=== PATIENT | female | born 1980 | race Caucasian/White ===

== ENCOUNTER 2016-08-09 10:00 | Emergency (ER) | payer OTHER | END 2016-08-09 11:20 | disposition home or self-care (01) | LOC: FER 10:00 | DX: R51 Headache (principal); R09.89 Other specified symptoms and signs involving the circulatory and respiratory systems; F17.200 Nicotine dependence, unspecified, uncomplicated; Z82.49 Family history of ischemic heart disease and other diseases of the circulatory system; Z82.3 Family history of stroke | CPT/HCPCS: 99283 ==

== ENCOUNTER 2020-04-22 08:29 | Emergency (ER) | payer OTHER ==
[~2020-04-22 08:29] MED LIST: BROMFED DM COU473 ML PO; IBUPROFEN800 MG PO; MEDROL 4MG DOSEP4 MG PO; PREDNISONE 20MG20 MG PO; TESSALON PERLE100 M1 PO; VIBRAMYCIN100 MG PO; ZPAK PO
[2020-04-22] MEDS ORDERED: DICLOFENAC SODI75 MG PO (10:43)
== END 2020-04-22 10:57 | disposition home or self-care (01) ==
LOC: FER 08:29
DX: S50.11XA Contusion of right forearm, initial encounter (principal); I10 Essential (primary) hypertension; F17.210 Nicotine dependence, cigarettes, uncomplicated; W00.0XXA Fall on same level due to ice and snow, initial encounter; Y92.009 Unspecified place in unspecified non-institutional (private) residence as the place of occurrence of the external cause
CPT/HCPCS: 73090

== ENCOUNTER 2021-05-03 08:32 | Emergency (ER) | payer OTHER ==
[~2021-05-03] VITALS: Ht 175.3 cm; Wt 81.6 kg
[~2021-05-03 08:32] MED LIST changes: +DICLOFENAC SODI75 MG PO
[2021-05-03 10:26] LABS: BASOPHIL 0.7 % (0-2); HCT 38.8 % (37.0-47.0); LYMPHOCYTE 36.4 % (15-48); MCH 31.2 pg (25.0-31.0); MCHC 33.5 g/dL (32.0-36.0); MONOCYTE 7.9 % (0-12); MPV 9.9 fL (6.0-9.5); NEUTROPHIL 49.7 % (41-80); NRBC 0; PLT 277 K/uL (150-400); RBC 4.17 M/uL (4.20-5.40); RDW 12.3 % (11.5-14.0); WBC 5.9 K/uL (4.0-10.5)
[2021-05-03 10:48] LABS: INR 1.04 (0.9-1.2); PTT 30.7 SECONDS (24.4-34.7)
[2021-05-03 10:49] LABS: D-DIMER < 0.27 ug/mLFEU (0.00-0.41)
[2021-05-03 10:55] LABS: ALKALINE PHOSHATASE 53 U/L (46-116); ALT 26 U/L (14-59); AST 15 U/L (15-37); BILIRUBIN - TOTAL 0.4 mg/dL (0.2-1.0); BUN 10 mg/dL (7-18); BUN/CREAT RATIO (CALC) 10.4 RATIO; CHLORIDE 103 mmol/L (98-107); CO2 (BICARBONATE) 31 mmol/L (21-32); CPK 136 U/L (26-192); CREATININE 0.96 mg/dL (0.51-0.95); GLOBULIN (CALCULATION) 2.7 g/dL; GLUCOSE 110 mg/dL (74-106); LDH 176 U/L (81-234); POTASSIUM 3.6 mmol/L (3.5-5.1); TOTAL PROTEIN 6.7 g/dL (6.4-8.2)
[2021-05-03 10:56] LABS: C-REACTIVE PROTEIN < 0.20 mg/dL (<=0.90)
[2021-05-03] MEDS ORDERED: KEFLEX250 MG PO (11:43)
[2021-05-03] MEDS ORDERED: ALDACTONE25 MG PO (11:43)
[2021-05-03] MEDS ORDERED: NORCO 5-325 TA1 EACH PO ×3 (11:43→13:51)
[2021-05-03] MEDS ORDERED: BACTROBAN NASAL1 GM TOP (11:49)
== END 2021-05-03 12:00 | disposition home or self-care (01) ==
LOC: FER 08:32 → FOFB 09:20 → FER 12:00
PROVIDERS: Emergency Medicine
DX: L03.116 Cellulitis of left lower limb (principal); L03.115 Cellulitis of right lower limb; I10 Essential (primary) hypertension; Z79.899 Other long term (current) drug therapy
CPT/HCPCS: 36415; 71045; 80053; 82550; 82728; 83615; 83880; 84145; 84439; 84443; 84484; 85025; 85379; 85610; 85730; 86140; 87040; 93005; J1170; J2405

== ENCOUNTER 2021-07-18 20:08 | Emergency (ER) | payer OTHER ==
[~2021-07-18 20:08] MED LIST changes: +ALDACTONE25 MG PO; +BACTROBAN NASAL1 GM TOP; +KEFLEX250 MG PO; +NORCO 5-325 TA1 EACH PO
[2021-07-18 23:02] LABS: BASOPHIL 0.4 % (0-2); EOSINOPHIL 1.2 % (0-5); HCT 40.4 % (37.0-47.0); HGB 13.6 g/dl (12.5-16.0); LYMPHOCYTE 13.4 % (15-48); MCH 30.9 pg (25.0-31.0); MCHC 33.7 g/dL (32.0-36.0); MCV 91.8 fL (78.0-100.0); MONOCYTE 6.9 % (0-12); MPV 9.8 fL (6.0-9.5); NEUTROPHIL 77.8 % (41-80); NRBC 0; PLT 237 K/uL (150-400); RDW 12.2 % (11.5-14.0); WBC 10.9 K/uL (4.0-10.5)
[2021-07-18 23:03] LABS: BILIRUBIN NEGATIVE (NEGATIVE); BLOOD NEGATIVE Ery/uL (NEGATIVE); CLARITY CLEAR (CLEAR); COLOR YELLOW (YELLOW); GLUCOSE (U) NORMAL (NORMAL); LEUKOCYTES NEGATIVE Leu/uL (NEGATIVE); NITRITE NEGATIVE (NEGATIVE); PROTEIN TRACE (LOW) mg/dL (NEGATIVE)
[2021-07-18 23:13] LABS: ALBUMIN 4.2 g/dL (3.4-5.0); BILIRUBIN - TOTAL 1.3 mg/dL (0.2-1.0); BUN/CREAT RATIO (CALC) 14.4 RATIO; CREATININE 0.97 mg/dL (0.51-0.95); GLOBULIN (CALCULATION) 3.1 g/dL; POTASSIUM 3.4 mmol/L (3.5-5.1); TOTAL PROTEIN 7.3 g/dL (6.4-8.2)
[2021-07-18] MEDS ORDERED: ONDANSETRON ODT4 MG PO (23:48)
[2021-07-18] MEDS ORDERED: OXY-IR 5MG5 MG PO (23:48)
== END 2021-07-19 00:12 | disposition home or self-care (01) ==
LOC: FER 20:08
PROVIDERS: Emergency Medicine
DX: N20.0 Calculus of kidney (principal); Z28.311 Partially vaccinated for COVID-19
CPT/HCPCS: 36415; 80053; 81003; 85025; J1170; J1885; J2405; J7030

== ENCOUNTER 2021-08-25 12:54 | Emergency (ER) | payer OTHER ==
[~2021-08-25 12:54] MED LIST changes: +ONDANSETRON ODT4 MG PO; +OXY-IR 5MG5 MG PO
== END 2021-08-25 15:11 | disposition home or self-care (01) ==
LOC: FER 12:54
DX: S61.011A Laceration without foreign body of right thumb without damage to nail, initial encounter (principal); I10 Essential (primary) hypertension; Z23 Encounter for immunization; Z28.311 Partially vaccinated for COVID-19; Z79.899 Other long term (current) drug therapy; W45.8XXA Other foreign body or object entering through skin, initial encounter; Y92.89 Other specified places as the place of occurrence of the external cause; Y99.0 Civilian activity done for income or pay
CPT/HCPCS: 90471; 90715

== ENCOUNTER 2021-08-25 19:16 | Emergency (ER) | payer OTHER | END 2021-08-25 19:33 | disposition home or self-care (01) | LOC: FER 19:16 | DX: S61.011A Laceration without foreign body of right thumb without damage to nail, initial encounter (principal); Z28.311 Partially vaccinated for COVID-19; W22.8XXA Striking against or struck by other objects, initial encounter; Y92.009 Unspecified place in unspecified non-institutional (private) residence as the place of occurrence of the external cause | CPT/HCPCS: 99283 ==

== ENCOUNTER 2021-10-18 18:59 | Emergency (ER) | payer OTHER ==
[2021-10-18 19:45] LABS: BASOPHIL 0.4 % (0-2); EOSINOPHIL 3.3 % (0-5); HCT 38.4 % (37.0-47.0); HGB 13.1 g/dl (12.5-16.0); LYMPHOCYTE 31.9 % (15-48); MCH 32.2 pg (25.0-31.0); MCHC 34.1 g/dL (32.0-36.0); MCV 94.3 fL (78.0-100.0); MPV 9.7 fL (6.0-9.5); NEUTROPHIL 58.9 % (41-80); NRBC 0; PLT 282 K/uL (150-400); RBC 4.07 M/uL (4.20-5.40); RDW 12.5 % (11.5-14.0); WBC 8.2 K/uL (4.0-10.5)
[2021-10-18 19:47] LABS: BILIRUBIN NEGATIVE (NEGATIVE); BLOOD NEGATIVE Ery/uL (NEGATIVE); CLARITY CLEAR (CLEAR); COLOR YELLOW (YELLOW); GLUCOSE (U) NORMAL (NORMAL); LEUKOCYTES TRACE Leu/uL (NEGATIVE); NITRITE NEGATIVE (NEGATIVE); PROTEIN NEGATIVE (NEGATIVE); UROBILINOGEN 0.2 mg/dL (0.2-1.0); pH 6.5 (5.0-9.0)
[2021-10-18 20:00] LABS: ALBUMIN 3.8 g/dL (3.4-5.0); BILIRUBIN - TOTAL 0.2 mg/dL (0.2-1.0); BUN/CREAT RATIO (CALC) 11.5 RATIO; CREATININE 0.78 mg/dL (0.51-0.95); GLOBULIN (CALCULATION) 2.6 g/dL; POTASSIUM 3.4 mmol/L (3.5-5.1); TOTAL PROTEIN 6.4 g/dL (6.4-8.2)
[2021-10-18] MEDS ORDERED: KEFLEX250 MG PO (20:58)
== END 2021-10-18 21:22 | disposition home or self-care (01) ==
LOC: FER 18:59
PROVIDERS: Emergency Medicine
DX: N39.0 Urinary tract infection, site not specified (principal); I10 Essential (primary) hypertension; F17.200 Nicotine dependence, unspecified, uncomplicated
CPT/HCPCS: 36415; 80053; 81001; 85025; 87076; 87088; 87186; J1170; J1885; J2405; J7030